=== PATIENT | male | born 1985 | race Caucasian/White ===

== ENCOUNTER 2018-07-17 20:31 | Emergency (ER) | payer OTHER ==
--- NOTE | 2018-07-17 20:54 | RADIOLOGY REPORT (SQ) ---
EXAM DESCRIPTION: SHOULDER RIGHT 2 OR MORE VIEWS COMPLETED DATE/TIME: 07/17/2018 8:47 pm REASON FOR STUDY: Fell on floor last PM-R shoulder injury pain COMPARISON: None. NUMBER OF VIEWS: Three views. TECHNIQUE: Internal rotation, external rotation, and Y view images acquired of the right shoulder. LIMITATIONS: None. FINDINGS: MINERALIZATION: Normal. BONES: No acute fracture or dislocation. No worrisome bone lesions. JOINTS: No dislocation. VISUALIZED LUNGS AND RIBS: No pneumothorax. No rib fracture. SOFT TISSUES: No radiopaque foreign body. OTHER: No other significant finding. IMPRESSION: NEGATIVE STUDY OF THE RIGHT SHOULDER. NO RADIOGRAPHIC EVIDENCE OF ACUTE INJURY. TECHNICAL DOCUMENTATION: JOB ID: [id number] [employer]- All Rights Reserved Reading location - IP/workstation name: [email or web address]
[2018-07-17] MEDS ORDERED: ACETAMINOPHEN 325 MG TABLET PO ONE (21:24)
[2018-07-17] MEDS ORDERED: KETOROLAC TROMETHAMINE 60 MG/2 ML SDV IM ONE (22:40)
[2018-07-17] MEDS ORDERED: LIDOCAINE 5% (700 MG) TRANSDERMAL ADH..PATCH TP ONE (22:40)
[2018-07-17] MEDS ORDERED: MORPHINE SULFATE IR 15 MG TABLET PO ONE (22:40)
--- NOTE | 2018-07-17 22:44 | ER Document Report ---
ED General - General Chief Complaint: Shoulder Injury Stated Complaint: FALL/RIGHT SHOULDER PAIN Time Seen by Provider: 07/17/18 21:09 Notes: Patient is a 32-year-old male without chronic medical problems who presents with severe right shoulder pain that has been present since yesterday. Patient states that he fell landing directly onto the right shoulder prior to going to bed last night. He states that since that time he has had severe, throbbing, constant pain to the right shoulder. Worsened with any attempted range of motion. He is right-hand dominant. Denies any additional trauma during the fall. He denies any associated weakness or numbness. No history of prior injury to the area in the past. TRAVEL OUTSIDE OF THE [place] IN LAST 30 DAYS: No - Related Data Allergies/Adverse Reactions: No Known Allergies Allergy (Unverified 10/09/12 12:03) Past Medical History - General Information source: Patient - Social History Smoking Status: Current Every Day Smoker Frequency of alcohol use: Occasional Drug Abuse: None Lives with: Family Family History: Reviewed & Not Pertinent Patient has suicidal ideation: No Patient has homicidal ideation: No Renal/ Medical History: Denies: Hx Peritoneal Dialysis Past Surgical History: Reports: Hx Orthopedic Surgery, Hx Tonsillectomy - Immunizations Immunizations up to date: Yes Hx Diphtheria, Pertussis, Tetanus Vaccination: Yes Review of Systems - Review of Systems Notes: Constitutional: Negative for fever. HENT: Negative for sore throat. Eyes: Negative for visual changes. Cardiovascular: Negative for chest pain. Respiratory: Negative for shortness of breath. Gastrointestinal: Negative for abdominal pain, vomiting or diarrhea. Genitourinary: Negative for dysuria. Musculoskeletal: Positive right shoulder pain Skin: Negative for rash. Neurological: Negative for headaches, weakness or numbness. 10 point ROS negative except as marked above and in HPI. Physical Exam - Vital signs Vitals: Temp Pulse Resp BP Pulse Ox 98.8 F 106 H 18 157/106 H 98 07/17/18 20:49 07/17/18 20:49 07/17/18 20:49 07/17/18 20:49 07/17/18 20:49 Interpretation: Tachycardic Notes: PHYSICAL EXAMINATION: GENERAL: Well-appearing, well-nourished and in no acute distress. HEAD: Atraumatic, normocephalic. EYES: Pupils equal round and reactive to light, extraocular movements intact, sclera anicteric, conjunctiva are normal. ENT: nares patent, oropharynx clear without exudates. Moist mucous membranes. NECK: Normal range of motion, supple without lymphadenopathy LUNGS: Breath sounds clear to auscultation bilaterally and equal. No wheezes rales or rhonchi. HEART: Regular rate and rhythm without murmurs, 2+ radial pulses bilaterally ABDOMEN: Soft, nontender, normoactive bowel sounds. No guarding, no rebound. No masses appreciated. EXTREMITIES: Patient has exquisite pain with any external rotation or abduction of the right shoulder. No visible deformity to the shoulder. No swelling. RMU motor and sensory distribution is intact including against resistance bilaterally. NEUROLOGICAL: No focal neurological deficits. Moves all extremities spontaneously and on command. PSYCH: Normal mood, normal affect. SKIN: Warm, Dry, normal turgor, no rashes or lesions noted. Course - Re-evaluation Re-evalutation: 07/17/18 22:42 No evidence of a septic joint, gout flare, dislocation, or fracture on exam and imaging. History is somewhat concerning for possible ligamentous injury of the right shoulder which I have advised the patient of and informed him that he may require outpatient orthopedic follow-up. Vitals wnl. At this time, I do not see an indication for labs or further imaging. Will discharge with conservative measures, return precautions, and follow-up recommendations. - Vital Signs Vital signs: Temp Pulse Resp BP Pulse Ox 98.6 F 88 20 147/68 H 98 07/17/18 22:57 07/17/18 22:57 07/17/18 22:57 07/17/18 22:57 07/17/18 22:57 - Diagnostic Test Radiology reviewed: Image reviewed, Reports reviewed Radiology results interpreted by me: 07/17/18 22:44 Right shoulder x-ray: No acute fracture or dislocation Discharge - Discharge Clinical Impression: Right shoulder injury Qualifiers: Encounter type: initial encounter Qualified Code(s): S49.91XA - Unspecified injury of right shoulder and upper arm, initial encounter Right shoulder pain Qualifiers: Chronicity: acute Qualified Code(s): M25.511 - Pain in right shoulder Condition: Good Disposition: HOME, SELF-CARE Instructions: Shoulder Dislocation ([facility]) Additional Instructions: Your x-ray does not show any acute fracture today. You likely have a ligamentous strain. For your pain: Take ibuprofen 600 mg and acetaminophen 1000 mg every 6 hours together as needed for pain. If this does not control your pain you may take 15 mg of oral morphine every 4 hours as needed. Please be very careful about using the oral morphine and only use this for severe pain. Continue to apply ice to the area is much your able. Please follow-up with your primary care physician if you do not have improving your symptoms in the next 1-2 weeks. Please return immediately if you develop weakness, numbness , spreading redness from the area, or any other symptoms that are concerning to you. Prescriptions: Morphine Sulfate [Morphine Ir 15 mg Tablet] 15 mg PO TID #6 tablet
[2018-07-17 22:58] VITALS: BP 147/68
== END 2018-07-17 22:58 | disposition home or self-care (01) ==
LOC: ER 20:31
DX: S49.91XA Unspecified injury of right shoulder and upper arm, initial encounter (principal); M25.511 Pain in right shoulder; W18.30XA Fall on same level, unspecified, initial encounter; F17.200 Nicotine dependence, unspecified, uncomplicated
CPT/HCPCS: 99283; 96372; 73030; J1885